=== PATIENT | male | born 1945 | race Caucasian/White ===

== ENCOUNTER 2018-12-02 04:48 | Emergency (ER) | payer OTHER ==
[2018-12-02] MEDS ORDERED: LIDOCAINE 2% JELLY 20 ML (UROJECT) ONE (05:03)
[2018-12-02] MEDS ORDERED: LIDOCAINE 2% JELLY 20 ML (UROJECT) UR ONE (05:05)
--- NOTE | 2018-12-02 05:57 | EDPHY ---
H & P Stated Complaint: UNABLE TO URINATE SINCE 2 PM HARVEY BLOOD Source: Patient Exam Limitations: No limitations - Personal History Current Tetanus/Diphtheria Vaccine: Yes Current Tetanus Diphtheria and Acellular Pertussis (TDAP): Yes Tetanus Vaccine Date: 2015 - Medical/Surgical History Hx Asthma: Yes Hx Chronic Respiratory Disease: Yes Hx Diabetes: Yes Hx Cardiac Disease: Yes Hx Renal Disease: No Hx Cirrhosis: No Hx Alcoholism: No Hx HIV/AIDS: No Hx Splenectomy or Spleen Trauma: No Other PMH: pmh- asthma, copd, DM, htn, hld, bladder/prostate ca. psh- "cancer stuff" - Social History Smoking Status: Former smoker Time Seen by Provider: 12/02/18 05:02 HPI/ROS: HPI The patient presents with urinary problem since about 2:00 p.m. Yesterday. He has had difficulty voiding with incomplete voiding and has felt uncomfortable throughout the night. He comes in now with abdominal discomfort. He says for the last 10 days he has had intermittent hematuria though has not been passing any blood clots. He has not had a fever. He has not had any difficulty with bowel movements. REVIEW OF SYSTEMS 10 systems were reviewed and negative with the exception of the elements mentioned in the history of present illness. PMHx: History of bladder cancer and prostate cancer status post brachytherapy and green light [place] [address] Llanes who is his primary urologist Soc Hx: Here with his PHYSICAL General Appearance: Alert, no distress Eyes: Pupils equal and round no pallor or injection ENT, Mouth: Mucous membranes moist Respiratory: There are no retractions, lungs are clear to auscultation Cardiovascular: Regular rate and rhythm Gastrointestinal: Abdomen is soft with suprapubic distension, no masses, bowel sounds normal Neurological: A&O, moves all extremities Skin: Warm and dry, no rashes Musculoskeletal: Neck is supple non tender Extremities: symmetrical, full range of motion Psychiatric: Patient is oriented X 3, there is no agitation (Riguzzi,Jacquie) Constitutional: Initial Vital Signs Temperature (C) 36.6 C 12/02/18 04:50 Heart Rate 72 12/02/18 04:50 Respiratory Rate 18 12/02/18 04:50 Blood Pressure 165/86 H 12/02/18 04:50 O2 Sat (%) 94 12/02/18 04:50 O2 Delivery Mode Room Air Allergies/Adverse Reactions: No Allergies [NKDA] Allergy (Verified 12/02/18 04:53) BEE STING Allergy (Uncoded 12/02/18 04:53) Other-Enter Comments Home Medications: Medication Instructions Recorded HUMALOG 04/09/10 LISINOPRIL 04/09/10 Lantus 04/09/10 Lipitor 10 mg 04/09/10 Albuterol [Ventolin Hfa Inhaler] 200 puffs IH 12/02/18 Budesonide/Formoterol 160/4.5 1 puffs IH BID 12/02/18 [Symbicort 160-4.5 Mcg Inh (*)] Medical Decision Making Differential Diagnosis: 73-year-old man with diabetes, history of bladder cancer and prostate cancer status post treatment, followed by Dr. Llanes of Urology, presents with intermittent hematuria and urinary retention for the last 16 hr approximately. Bladder scan reveals 500 mL of urine. We have tried to pass a Conrad catheter here with difficulty. A 16 [place] catheter as well as coude catheter were attempted without success. I have consulted with the on-call urologist Dr. Payan who recommends NPO, antibiotics, cystoscopy cart. He will be seen in the emergency department. ( Jacquie Wright) 7:30 a.m.-I assumed care of this patient at shift change. He has declined IV and antibiotics. We received a phone call from Dr. Llanes, who would like to see the patient in the office. The patient is agreeable to this plan. I will discharge the patient home and he will go directly to Dr. Llanes's office. (Margareth Conde) - Data Points Medications Given: Discontinued Medications Lidocaine (Uroject Lidocaine 2% Jelly) 20 ml UR EDNOW ONE Stop: 12/02/18 05:06 Last Admin: 12/02/18 05:07 Dose: 20 ml Departure - Departure Disposition: Home, Routine, Self-Care Clinical Impression: Acute retention of urine Condition: Good Instructions: Urinary Retention in Men (ED), Conrad Catheter Placement and Care (ED) Additional Instructions: Go directly to Dr. Llanes's office. Referrals: Klaus Llanes MD [Medical Doctor] - As per Instructions
[2018-12-02 07:46] VITALS: BP 135/62
== END 2018-12-02 07:51 | disposition home or self-care (01) ==
PROC: 4A0D7LZ Measurement of Urinary Volume, Via Natural or Artificial Opening (ICD-10-PCS; principal; 2018-12-02)
PROC: 0T9B70Z Drainage of Bladder with Drainage Device, Via Natural or Artificial Opening (ICD-10-PCS; principal; 2018-12-02)
DX: R33.9 Retention of urine, unspecified (principal); E11.9 Type 2 diabetes mellitus without complications; I10 Essential (primary) hypertension; Z79.4 Long term (current) use of insulin; Z85.51 Personal history of malignant neoplasm of bladder; Z85.46 Personal history of malignant neoplasm of prostate
CPT/HCPCS: J0696